=== PATIENT | male | born 1970 | race Caucasian/White ===

== ENCOUNTER 2018-01-12 18:43 | Emergency (ER) | payer OTHER ==
--- NOTE | 2018-01-12 18:52 | EDPHY ---
H & P Time Seen by Provider: 01/12/18 18:51 HPI/ROS: CHIEF COMPLAINT: Lightheadedness, shakiness, increasing anxiety HISTORY OF PRESENT ILLNESS: The patient presents the ED with lightheadedness, shakiness, anxiety and nausea. The patient is visiting [place] from [place]. He arrived yesterday. Patient does have asthma and anxiety at baseline. The patient does use Xanax both a"long-acting and short-acting form" for management of anxiety. The patient denies any chest pain or shortness of breath. The patient fever, cough or congestion. The patient denies any acute abdominal pain. The patient denies any severe headache or focal neurologic symptoms. The patient does report he removed 2 ticks from his body over the past week. He denies any complaints of rash. His is currently being treated for Lyme disease. REVIEW OF SYSTEMS: A comprehensive 10 point review of systems is otherwise negative aside from elements mentioned in the history of present illness. Source: Patient Exam Limitations: No limitations - Family History Significant Family History: No pertinent family hx - Social History Smoking Status: Never smoked - Physical Exam Exam: General Appearance: The anxious, tremulous Eyes: Pupils equal and round no pallor or injection ENT, Mouth: Mucous membranes moist Respiratory: There are no retractions, lungs are clear to auscultation Cardiovascular: Regular rate and rhythm Gastrointestinal: Abdomen is soft and nontender, no masses, bowel sounds normal Neurological: 5/5 strength all 4 extremities Skin: Warm and dry, no rashes Musculoskeletal: Neck is supple nontender Extremities: symmetrical, full range of motion Constitutional: Initial Vital Signs Temperature (C) 36.7 C 01/12/18 18:50 Heart Rate 108 H 01/12/18 18:50 Respiratory Rate 24 H 01/12/18 18:50 Blood Pressure 145/80 H 01/12/18 18:50 O2 Sat (%) 96 01/12/18 18:50 O2 Delivery Mode Room Air Allergies/Adverse Reactions: ibuprofen Allergy (Verified 01/12/18 18:53) Penicillins Allergy (Verified 01/12/18 18:53) Home Medications: Medication Instructions Recorded Adderall 10 MG (*) 01/12/18 Albuterol 01/12/18 Anafranil 01/12/18 Clotramine 01/12/18 Lipitor 01/12/18 Ondansetron Odt [Zofran Odt] 4 mg PO Q4PRN PRN #20 tab 01/12/18 Prilosec 01/12/18 Symbicort 160-4.5 Mcg Inh (*) 01/12/18 Tums Ultra Strength 01/12/18 Xanax 01/12/18 clomiPRAMINE 01/12/18 Medical Decision Making - Diagnostics EKG Interpretation: EKG: Complete interpretation has been separately recorded in the [facility] archive. Summary impression: Sinus tachycardia, rate 107 ED Course/Re-evaluation: The patient presents to the ED with multiple symptoms including shakiness, lightheadedness and tachycardia. The patient appears quite anxious clinically. He has been somewhat dehydrated since arriving at altitude. He denies any chest pain. He has no ischemic changes on his EKG. The patient had an IV established. He received 2 L removal saline 1 mg of Ativan. The patient underwent serial examinations in the ED over a 2 hr period. At 9: 00 p.m. He is feeling much better. He is ambulatory. His tachycardia has resolved. This point time I do feel the patient can be discharged home. He has been encouraged to increase his fluid intake. He will be given customary aftercare instructions and return precautions. Differential Diagnosis: Differential diagnosis considered includes arrhythmia, dehydration, renal failure, anxiety, altitude illness - Data Points Laboratory Results: Laboratory Results 01/12/18 18:30 01/12/18 18:30 01/12/18 01/12/18 01/12/18 19:37 18:30 18:30 WBC 13.98 10^3/uL H 10^3/uL (3.80-9.50) RBC 5.43 10^6/uL 10^6/uL (4.40-6.38) Hgb 15.6 g/dL g/dL (13.7-17.5) Hct 45.8 % % (40.0-51.0) MCV 84.3 fL fL (81.5-99.8) MCH 28.7 pg pg (27.9-34.1) MCHC 34.1 g/dL g/dL (32.4-36.7) RDW 12.9 % % (11.5-15.2) Plt Count 371 10^3/uL 10^3/uL (150-400) MPV 12.1 fL H fL (8.7-11.7) Neut % (Auto) 48.4 % % (39.3-74.2) Lymph % (Auto) 36.2 % % (15.0-45.0) [place] % (Auto) 9.6 % % (4.5-13.0) Eos % (Auto) 3.4 % % (0.6-7.6) Baso % (Auto) 1.0 % % (0.3-1.7) Nucleat RBC Rel Count 0.0 % % (0.0-0.2) Absolute Neuts (auto) 6.77 10^3/uL H 10^3/uL (1.70-6.50) Absolute Lymphs (auto) 5.06 10^3/uL H 10^3/uL (1.00-3.00) Absolute Monos (auto) 1.34 10^3/uL H 10^3/uL (0.30-0.80) Absolute Eos (auto) 0.48 10^3/uL H 10^3/uL (0.03-0.40) Absolute Basos (auto) 0.14 10^3/uL H 10^3/uL (0.02-0.10) Absolute Nucleated RBC 0.00 10^3/uL 10^3/uL (0-0.01) Immature Gran % 1.4 % H % (0.0-1.1) Immature Gran # 0.20 10^3/uL H 10^3/uL (0.00-0.10) RBC/WBC/PLT Morphology TNP Platelet Estimate TNP Sodium 139 mEq/L mEq/L (135-145) Potassium 3.9 mEq/L mEq/L (3.3-5.0) Chloride 98 mEq/L mEq/L (97-110) Carbon Dioxide 22 mEq/l mEq/l (22-31) Anion Gap 19 mEq/L H mEq/L (8-16) BUN 10 mg/dL mg/dL (7-23) Creatinine 1.0 mg/dL mg/dL (0.7-1.3) Estimated GFR > 60 Glucose 121 mg/dL H mg/dL (70-100) Calcium 10.2 mg/dL mg/dL (8.5-10.4) POC Troponin I 0.00 ng/mL ng/mL (0.00-0.08) Medications Given: Discontinued Medications Sodium Chloride (Ns) 1,000 mls @ 0 mls/hr IV ONCE ONE; Wide Open PRN Reason: Protocol Stop: 01/12/18 19:15 Last Admin: 01/12/18 19:20 Dose: 1,000 mls Lorazepam (Ativan Injection) 1 mg IVP EDNOW ONE Stop: 01/12/18 19:16 Last Admin: 01/12/18 19:20 Dose: 1 mg Point of Care Test Results: Chemistry 01/12/18 19:37 POC Troponin I 0.00 ng/mL ng/mL (0.00-0.08) Departure - Departure Disposition: Home, Routine, Self-Care Clinical Impression: Dehydration, Altitude illness, Anxiety Condition: Good Instructions: Dehydration (ED), Mountain Sickness (ED) Additional Instructions: 1. The testing done in the emergency department today demonstrates no significant laboratory abnormality arrhythmia or evidence of a cardiac condition. 2. I believe your symptoms of the result of a combination of altitude illness, dehydration and anxiety. Please try and increase your fluid intake. Avoid caffeine and alcohol. Limit exertion for next several days. 3. Please return to the ED for markedly worsening symptoms or other concerns. 4. Follow up with your primary care provider as scheduled. 5. Zofran as needed for nausea.
[2018-01-12] MEDS ORDERED: NS 1,000 ML IV ONE (19:14)
[2018-01-12] MEDS ORDERED: LORazepam 2 MG/ML INJ IVP ONE (19:15)
[2018-01-12 19:22] LABS: PLATELET COUNT 371 10^3/uL (150-400)
--- NOTE | 2018-01-12 19:26 | CPEKG ---
Heart Rate: 107 RR Interval: 561 P-R Interval: 136 QRSD Interval: 92 QT Interval: 324 QTC Interval: 433 P Mercedes: 49 QRS Mercedes: 14 T Wave Mercedes: 130 EKG Severity - OTHERWISE NORMAL ECG - EKG Impression: SINUS TACHYCARDIA Electronically Signed By: Luis Antonio Jimenez 12-Jan-2018 19:56:18
[2018-01-12 21:09] VITALS: BP 118/80
[2018-01-12] MEDS ORDERED: ONDANSETRON 4MG PREPACK#2 BTL TAKEHOME ONE (21:45)
== END 2018-01-12 22:15 | disposition home or self-care (01) ==
DX: F41.9 Anxiety disorder, unspecified (principal); T70.29XA Other effects of high altitude, initial encounter; E86.9 Volume depletion, unspecified
CPT/HCPCS: 84484-PO; 96374; J2060